=== PATIENT | female | born 1980 | race Caucasian/White ===

== ENCOUNTER 2020-05-29 07:57 | Outpatient (REF) | payer OTHER, SELFPAY ==
[2020-05-29 11:13] LABS: MANUAL DIFF FLAG NO
[2020-05-29 11:47] LABS: Basophils Percent Auto 0.7 % (0-2); Eosinophils Absolute Auto 0.2 X10*3/uL (0.0-0.4); Eosinophils Percent Auto 3.3 % (0-4); Hematocrit 40.7 % (37-47); Hemoglobin 13.4 g/dl (12.0-16.0); Imm Gran Abs Auto 0.01 X10*3/uL (0.00-0.03); Imm Gran Pct Auto 0.2 % (0.0-0.4); Lymphocytes Absolute Auto 2.2 X10*3/uL (1.2-4.9); Lymphocytes Percent Auto 36.9 % (20-40); Mean Corpuscular HGB Conc 32.9 g/dl (31.0-35.0); Mean Corpuscular Hemoglobin 28.7 pg (27.0-33.0); Mean Corpuscular Volume 87.2 fL (80-98); Mean Platelet Volume 11.2 fL (9.4-12.3); Monocytes Absolute Auto 0.6 X10*3/uL (0.1-1.2); Neutrophils Percent Auto 48.9 % (45-73); Platelet Count 222 X10*3/uL (160-400); Red Blood Count 4.67 X10*6/uL (4.20-5.50)
[2020-05-29 12:30] LABS: Alanine Aminotransferase 9 U/L (0-31); Albumin Level 4.1 g/dL (3.5-5.0); Alkaline Phosphatase 85 U/L (39-117); Anion Gap 12 (12-20); Aspartate Amino Transferase 13 U/L (5-31); Bilirubin Direct < 0.2 mg/dL (0.0-0.5); Bilirubin Total 0.3 mg/dL (0.0-1.0); Blood Urea Nitrogen 16 mg/dL (9-16); Calcium 8.4 mg/dL (8.4-10.2); Carbon Dioxide 26 mmol/L (22-29); Chloride 109 mmol/L (96-108); Cholesterol 186 mg/dL; Estimated Glomerular Filt Rate > 60; Glucose Fasting 101 mg/dL (60-99); HDL Cholesterol 50 mg/dL; LDL Cholesterol Calculated 119 mg/dl; Potassium 4.5 mmol/L (3.3-5.1); Sodium 142 mmol/L (135-145); Total Protein 6.7 g/dL (6.5-8.0); Triglycerides 89 mg/dL
== END 2020-05-29 07:58 | disposition home or self-care (01) ==
LOC: HO.HMGCLDS 07:57
PROVIDERS: PCP Internal Medicine; Visit Provider Internal Medicine
DX: Z00.00 Encounter for general adult medical examination without abnormal findings (principal)
CPT/HCPCS: 36415; 80048; 80061; 80076; 85025

== ENCOUNTER 2020-08-07 08:30 | Outpatient (REF) | payer OTHER, SELFPAY ==
[2020-08-07 13:20] LABS: CT PCR NOT DETECTED (Not Detect.); NG PCR NOT DETECTED (Not Detect.)
[2020-08-10 10:16] LABS: HPV mRNA E6/E7 rflx Not Detected (Not Detected)
== END 2020-08-07 08:31 | disposition home or self-care (01) ==
LOC: HO.LAB 08:30
PROVIDERS: Visit Provider Advanced Practice Midwife
DX: Z01.419 Encounter for gynecological examination (general) (routine) without abnormal findings (principal); Z11.51 Encounter for screening for human papillomavirus (HPV)
CPT/HCPCS: 87491; 87591; 87624; 88142

== ENCOUNTER 2021-05-19 08:06 | Outpatient (REF) | payer OTHER, SELFPAY ==
[2021-05-19 11:08] LABS: MANUAL DIFF FLAG NO
[2021-05-19 11:12] LABS: Basophils Percent Auto 0.7 % (0-2); Eosinophils Absolute Auto 0.1 X10*3/uL (0.0-0.4); Eosinophils Percent Auto 2.1 % (0-4); Hematocrit 40.4 % (37.0-47.0); Hemoglobin 13.4 g/dl (12.0-16.0); Imm Gran Abs Auto 0.01 X10*3/uL (0.00-0.03); Imm Gran Pct Auto 0.2 % (0.0-0.4); Lymphocytes Absolute Auto 1.9 X10*3/uL (1.2-4.9); Mean Corpuscular HGB Conc 33.2 g/dl (31.0-35.0); Mean Corpuscular Hemoglobin 28.8 pg (27.0-33.0); Mean Corpuscular Volume 86.9 fL (80.0-98.0); Mean Platelet Volume 12.4 fL (9.4-12.3); Monocytes Absolute Auto 0.4 X10*3/uL (0.1-1.2); Monocytes Percent Auto 7.6 % (2-11); Neutrophils Absolute Auto 3.2 x10*3/uL (2.0-8.3); Neutrophils Percent Auto 56.4 % (45-73); Platelet Count 157 X10*3/uL (160-400); Red Blood Count 4.65 X10*6/uL (4.20-5.50); Red Cell Distribution Width 11.8 % (11.0-16.0); White Blood Count 5.6 X10*3/uL (4.8-10.8)
[2021-05-19 11:29] LABS: Alanine Aminotransferase 8 U/L (0-31); Albumin Level 3.9 g/dL (3.5-5.0); Alkaline Phosphatase 68 U/L (39-117); Anion Gap 10 (12-20); Aspartate Amino Transferase 14 U/L (5-31); Bilirubin Total 0.6 mg/dL (0.0-1.0); Blood Urea Nitrogen 17 mg/dL (9-16); Carbon Dioxide 25 mmol/L (22-29); Chloride 108 mmol/L (96-108); Cholesterol 171 mg/dL; Estimated Glomerular Filt Rate > 60; Glucose Fasting 111 mg/dL (60-99); HDL Cholesterol 48 mg/dL; LDL Cholesterol Calculated 109 mg/dl; Potassium 4.3 mmol/L (3.3-5.1); Sodium 139 mmol/L (135-145); Total Protein 6.4 g/dL (6.5-8.0); Triglycerides 71 mg/dL
[2021-05-21 04:43] LABS: Vitamin B12 405 pg/mL (200-900)
[2021-05-23 12:06] LABS: Vitamin D 25-OH, D2 <4 ng/mL; Vitamin D 25-OH, D3 12 ng/mL; Vitamin D 25-OH, Total 12 ng/mL (30-100)
== END 2021-05-19 08:07 | disposition home or self-care (01) ==
LOC: HO.HMGCLDS 08:06
PROVIDERS: PCP Internal Medicine; Visit Provider Internal Medicine
DX: Z00.01 Encounter for general adult medical examination with abnormal findings (principal); R73.03 Prediabetes; R14.3 Flatulence; R14.2 Eructation; R14.0 Abdominal distension (gaseous)
CPT/HCPCS: 36415; 80053; 80061; 82306; 82607; 84443; 85025

== ENCOUNTER 2021-09-19 12:47 | Outpatient (REF) | payer OTHER, SELFPAY ==
[2021-09-19 15:22] LABS: CT PCR NOT DETECTED (Not Detect.); NG PCR NOT DETECTED (Not Detect.)
[2021-09-20 13:49] LABS: BV Int Neg Control Negative (Negative); BV Int Pos Control Positive (Positive)
== END 2021-09-19 12:48 | disposition home or self-care (01) ==
LOC: HO.LAB 12:47
PROVIDERS: Visit Provider Advanced Practice Midwife
DX: Z01.419 Encounter for gynecological examination (general) (routine) without abnormal findings (principal)
CPT/HCPCS: 87480; 87491; 87510; 87591; 87660

== ENCOUNTER 2021-11-07 11:06 | Outpatient (REF) | payer OTHER, SELFPAY ==
--- NOTE | ~2021-11-07 | US_ITS ---
EXAMINATION: US PELVIS CLINICAL INFORMATION: Unusual cramping, verify position of IUD. COMPARISON: None TECHNIQUE: Ultrasound of the pelvis is performed using both transabdominal and transvaginal transducers along with Doppler. Transvaginal imaging is performed due to inadequate visualization transabdominally. FINDINGS: Uterus: The uterus is anteverted, anteflexed and measures 10.2 cm in length, 5.2 cm in AP and 6.3 cm in transverse dimension. There is an IUD within the endometrial canal with endometrial thickness not seen. There are small nabothian cysts in the cervix. The uterus is smooth in contour and has normal myometrial echogenicity. No visible fibroid. Adnexa: Both ovaries are visualized. There is normal color-flow to the adnexa. There is no ovarian torsion. There is no pelvic ascites or fluid collection. Right ovary measures 3.5 x 1.6 x 1.7 cm and volume 5.0 mL. It appears unremarkable. Left ovary measures 2.8 x 1.6 x 2.4 cm and volume 5.4 mL. There is a small corpus luteal cyst measuring 1.8 x 1.4 x 2.4 cm. There is no free fluid in the cul-de-sac. US/US pelvic and transvaginal IMPRESSION: IUD well located within the endometrial canal. Small nabothian cysts in the cervix. Small corpus luteal cyst left ovary.
[2021-11-07 13:51] LABS: Syphilis Screen Nonreactive (Nonreactive)
[2021-11-08 05:30] LABS: HBsAGNum1 0.33 S/CO (0.00-0.99); HIV AB/AG Nonreactive (Nonreactive); HIV Num 1 0.08 S/CO (0.00-0.99); Hepatitis B Surface Antigen Negative (Negative); ~HepC Num1 0.08 S/CO (0.00-0.79); ~Hepatitis C Antibody Nonreactive (Nonreactive)
== END 2021-11-07 11:07 | disposition home or self-care (01) ==
LOC: HO.US 11:06
PROVIDERS: Visit Provider Advanced Practice Midwife
DX: Z30.431 Encounter for routine checking of intrauterine contraceptive device (principal); N94.89 Other specified conditions associated with female genital organs and menstrual cycle
CPT/HCPCS: 36415; 76830; 76856; 86780; 86803; 87340; 87389

== ENCOUNTER 2022-06-05 12:19 | Outpatient (REF) | payer OTHER, SELFPAY ==
[2022-06-05 13:55] LABS: MANUAL DIFF FLAG NO
[2022-06-05 14:04] LABS: Basophils Percent Auto 0.5 % (0-2); Eosinophils Absolute Auto 0.3 X10*3/uL (0.0-0.4); Eosinophils Percent Auto 3.5 % (0-4); Hematocrit 42.4 % (37.0-47.0); Hemoglobin 14.2 g/dl (12.0-16.0); Imm Gran Abs Auto 0.02 X10*3/uL (0.00-0.03); Imm Gran Pct Auto 0.2 % (0.0-0.4); Lymphocytes Absolute Auto 2.4 X10*3/uL (1.2-4.9); Lymphocytes Percent Auto 29.7 % (20-40); Mean Corpuscular HGB Conc 33.5 g/dl (31.0-35.0); Mean Corpuscular Hemoglobin 28.7 pg (27.0-33.0); Mean Corpuscular Volume 85.7 fL (80.0-98.0); Mean Platelet Volume 11.5 fL (9.4-12.3); Monocytes Absolute Auto 0.5 X10*3/uL (0.1-1.2); Monocytes Percent Auto 6.7 % (2-11); Neutrophils Absolute Auto 4.8 x10*3/uL (2.0-8.3); Neutrophils Percent Auto 59.4 % (45-73); Platelet Count 215 X10*3/uL (160-400); Red Blood Count 4.95 X10*6/uL (4.20-5.50)
[2022-06-05 14:22] LABS: Alanine Aminotransferase 10 U/L (0-31); Albumin Level 4.2 g/dL (3.5-5.0); Alkaline Phosphatase 77 U/L (39-117); Anion Gap 15 (12-20); Aspartate Amino Transferase 14 U/L (5-31); Bilirubin Total 0.4 mg/dL (0.0-1.0); Blood Urea Nitrogen 14 mg/dL (9-16); Calcium 9.2 mg/dL (8.4-10.2); Carbon Dioxide 24 mmol/L (22-29); Chloride 106 mmol/L (96-108); Estimated Glomerular Filt Rate > 60; Glucose Random 101 mg/dL (60-115); Potassium 4.3 mmol/L (3.3-5.1); Sodium 141 mmol/L (135-145); Total Protein 6.7 g/dL (6.5-8.0)
[2022-06-05 14:23] LABS: Estimated Average Glucose 114 mg/dL; Hemoglobin A1c % 5.6 %
[2022-06-10 16:28] LABS: Vitamin D 25-OH, D2 <4 ng/mL; Vitamin D 25-OH, D3 23 ng/mL; Vitamin D 25-OH, Total 23 ng/mL (30-100)
== END 2022-06-05 12:20 | disposition home or self-care (01) ==
LOC: HO.HMGCLDS 12:19
PROVIDERS: PCP Internal Medicine; Visit Provider Internal Medicine
DX: Z00.01 Encounter for general adult medical examination with abnormal findings (principal); E55.9 Vitamin D deficiency, unspecified; R73.03 Prediabetes
CPT/HCPCS: 36415; 80053; 82306; 83036; 85025

== ENCOUNTER 2023-01-01 13:02 | Outpatient (REF) | payer OTHER, SELFPAY ==
[2023-01-02 09:54] LABS: BV Int Neg Control Negative (Negative); BV Int Pos Control Positive (Positive)
[2023-01-03 19:59] LABS: HPV mRNA E6/E7 rflx Not Detected (Not Detected)
== END 2023-01-01 13:03 | disposition home or self-care (01) ==
LOC: HO.LNP 13:02
PROVIDERS: PCP Internal Medicine; Visit Provider Advanced Practice Midwife
DX: Z01.419 Encounter for gynecological examination (general) (routine) without abnormal findings (principal); Z11.51 Encounter for screening for human papillomavirus (HPV); N92.0 Excessive and frequent menstruation with regular cycle; Z97.5 Presence of (intrauterine) contraceptive device
CPT/HCPCS: 0353U; 87480; 87510; 87624; 87660; 88142; 99396

== ENCOUNTER 2023-01-01 13:02 | Outpatient (AMB) | payer OTHER, SELFPAY ==
--- NOTE | 2023-01-01 13:05 | MHC.OFFVIS ---
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 Balloon Maker Required: No Information Interpreted: non-clinical & clinical Mutuel Cashier: Mutuel Cashier Present (Mikey) Allergies No Known Allergies Allergy (Verified 01/01/23 13:08) Medication List - Last Reconciled 01/01/23 by Tosha Garcia CNM acyclovir 5% 1 appl topical 6XD 7 days copper (ParaGard T 380A) intrauterine penciclovir 1% 1 appl topical Q2H 4 days triamcinolone acetonide 0.1% 1 appl topical DAILY 30 days Is last menstrual period known: Yes Last menstrual period: 12/12/22 Post menopausal: No HPI 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 She has a history of abnormal Pap smears a very long time ago and had some sort of biopsy taken but they have been normal since. She says that I told her that this year she would have a Pap because of the history of abnormals it was found in a history of a note when doing research last year neither she nor I remember exactly when the last Pap was MA did not find 1 in our system patient states it was in the [place]. Patient has the ParaGard IUD the location of which was double checked by ultrasound last year. She thinks it was inserted 8 years ago after the of her daughter. She is happy with it her cycles to come every 23-24 days but they are like clockwork they last usually about 3-4 days though once 1 was only 2 days. She had implants placed in her breasts last year she has regreting it slightly in that she thinks she should have been happy with how she was but she is not having any problems with them. She has not had a mammogram yet. She is healthy otherwise and takes care of herself. PFSH Surgical History H/O breast augmentation Family History Sister Kidney disease Hypertension Breast cancer Social History Housing: House Alcohol intake: current Alcohol intake frequency: a few times a month Patient Tobacco Use Status: Never used Tobacco (7 years ago ) Years Smoked: 10 years e-Cigarette/Vaping Use: Never Used Substance Use Type: Marijuana Current occupational status: employed Cognitive needs: No Hearing needs: No Vision needs: No Female Reproductive History Menstrual Age of Menarche: 13 Duration of menses: 3-5 days Date of last menstrual period: 12/12/22 control method: copper IUCD Total pregnancies: 4 Full term: 4 Number of Living Children: 4 Date of last pap smear: 08/08/20 (negative) History of abnormal pap smear: Yes Physical Exam Vital Signs: Last Vital Signs BP 116/66 01/01/23 13:06 BMI result Body Mass Index 24.6 Const General: healthy appearing, comfortable, no acute distress, well developed and alert Nutritional Appearance: average body habitus Orientation/consciousness: patient oriented x3 Limitations: no limitations HEENT Head: Yes normocephalic Neck Neck: Yes normal visual inspection Chest Other: Has breast implants Chest palpation & inspection: normal inspection of the chest Breast/axilla inspection: normal inspection of the breasts and normal inspection of the axillae Breast/axilla palpation: normal palpation of the breasts and normal palpation of the axillae Resp Effort & Inspection: normal respiratory effort GI Inspection: Yes normal to inspection, No Abdominal wall edema and No distended Palpation (GI): Soft to palpation and nontender General: Yes bladder normal to palpation External Female Exam: normal external appearance and normal appearance of the urethra Speculum Exam - Vagina: normal appearance of the vagina, normal palpation and normal vaginal discharge Speculum Exam - Cervix: normal appearance of the cervix, normal palpation and nontender Bimanual exam- vagina & uterus: normal bimanual exam, normal palpation, uterine size normal, bladder normal to palpation, consistency normal, normal palpation, uterine mobility normal, uterine shape normal, No Cervical tenderness present, non-tender and no cervical motion tenderness Bimanual Exam- Adnexa, other: normal adnexae, no masses, normal and No adnexal tenderness Neuro General: patient oriented x3 Assessment & Plan Assessment & Plan (1) IUD (intrauterine device) in place: Code(s): Z97.5 - Presence of (intrauterine) contraceptive device (2) Surveillance for control, intrauterine device: Comment: Has ParaGard in place inserted 8 years ago after the of her daughter. Code(s): Z30.431 - Encounter for routine checking of intrauterine contraceptive device (3) Short menstrual cycle: Comment: Q 23-24 days by her description. They last 3-4 days max. Code(s): N92.0 - Excessive and frequent menstruation with regular cycle (4) Family history of breast cancer in first degree relative: Code(s): Z80.3 - Family history of malignant neoplasm of breast (5) Well woman exam with routine gynecological exam: Code(s): Z01.419 - Encounter for gynecological examination (general) (routine) without abnormal findings Plan -----Discussed in this visit the following: healthy balanced diet, regular and consistent exercise, getting recommended health screens, doing the best she can for her particular health concerns, kegel exercises, pap smear screening and followup recommendations, mammography screening and SBE, normal changes in cycles in her life stage--- . Reviewed her history. Mammogram ordered. Recommend trying to schedule it for after her menses for comfort. Pap smear done we were not able to find the exact history of her Pap but we will follow it from here on. 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 Discussed that she can replace the ParaGard IUD in 2 years that it is FDA approved for 10 years. It would be best for her to plan for it come and then says signed consent to order it and then try to schedule it for with herperiod Sometime at her convenience.. Coding Level of Care Code Est Pt Prev Care 40-64y([id number]) Diagnoses IUD (intrauterine device) in place Z97.5 Surveillance for control, intrauterine device Z30.431 Short menstrual cycle N92.0 Family history of breast cancer in first degree relative Z80.3 Well woman exam with routine gynecological exam Z01.419
[2023-01-01 13:06] VITALS: BP 116/66; BMI 24.6
== END 2023-01-01 13:50 | disposition home or self-care (01) ==
PROVIDERS: PCP Internal Medicine; Visit Provider Advanced Practice Midwife
DX: Z01.419 Encounter for gynecological examination (general) (routine) without abnormal findings (principal); N92.0 Excessive and frequent menstruation with regular cycle; Z80.3 Family history of malignant neoplasm of breast
CPT/HCPCS: 99396

== ENCOUNTER 2023-06-11 10:30 | Outpatient (AMB) | payer OTHER, SELFPAY ==
--- NOTE | 2023-06-11 10:45 | MHC.PC.OV ---
Vital Signs 06/11/23 10:46 Height 5 ft Weight 125 lb 2 oz BMI 24.4 BP 126/74 Blood Pressure Location Rt brachial Position Sitting Pulse 99 Pulse Source Pulse Oximeter Pulse Oximetry (%) 96 Oxygen Delivery Method Room Air Intake Visit Reasons: PE Allergies No Known Allergies Allergy (Verified 06/11/23 10:48) Medication List - Last Reconciled 06/11/23 by Hector Ramirez MD acyclovir 5% 1 appl topical 6XD 7 days copper (ParaGard T 380A) intrauterine penciclovir 1% 1 appl topical Q2H 4 days triamcinolone acetonide 0.1% 1 appl topical DAILY 30 days Tobacco use date assessed: 06/11/23 Dental Screening Dental Screen Date: 06/11/23 Did you have a dental visit in the last 12 months?: Yes Did you have a dental problem in the last 6 months where you did not have access to dental care?: No Was dental information given to patient?: Patient has dentist HPI PE HPI Details Patient is a 42-year-old female came today for physical examination Patient have [facility] Mammogram is due Pre diabetes: Patient will be having labs done fasting We are checking her sugars once a year when she comes in for physical examination. Continue vitamin-D supplement Follow-up 1 year physical exam [facility] Surgical History H/O breast augmentation Family History Sister Kidney disease Hypertension Breast cancer Social History Housing: House Alcohol intake: current Alcohol intake frequency: a few times a month Patient Tobacco Use Status: Never used Tobacco (7 years ago ) Years Smoked: 10 years e-Cigarette/Vaping Use: Never Used Substance Use Type: Marijuana Current occupational status: employed Cognitive needs: No Hearing needs: No Vision needs: No Female Reproductive History Menstrual Age of Menarche: 13 Questionnaire PHQ-9 Over the last 2 weeks, how often have you been bothered by any of the following problems? 1. Little interest or pleasure in doing things: not at all 2. Feeling down, depressed, or hopeless: not at all 3. Trouble falling or staying asleep, or sleeping too much: not at all 4. Feeling tired or having little energy: not at all 5. Poor appetite or overeating: not at all 6. Feeling bad about yourself - or that you are a failure or have let yourself or your family down: not at all 7. Trouble concentrating on things, such as reading the newspaper or watching television: not at all 8. Moving or speaking so slowly that other people could have noticed. Or the opposite - being so fidgety or restless that you have been moving around a lot more than usual: not at all 9. Thoughts that you would be better off or of hurting yourself in some way: not at all Total score: 0 Depression Screening Interpretation: Negative Depression Screening Done: Yes 16579 - PHQ-9 Billing: Yes Source: Developed by Drs. Neal Chairez, Jody Awad, Tristin Zhang and colleagues, with an educational violeta from [facility]. Thrive Questionnaire Date Thrive assessed: 06/11/23 I am a: Patient What is your living situation today?: I have a steady place to live Within the past 12 months, did the food you bought not last and you didn't have the money to get more?: Never true Within the past 12 months, did you worry whether your food would run out before you got money to buy more?: Never true Do you have trouble paying for medicines?: No Do you have trouble getting transportation to medical appointments?: No Do you have trouble paying your heating and electricity bill?: No Do you have trouble taking care of your child, family member or friend?: No Do you have trouble with day-to-day activities such as bathing, preparing meals, shopping, managing finances, etc.?: No Are you currently unemployed and looking for a job?: No Are you interested in more education?: No Please select the resources that you would like help with: None Currently or been in a relationship where the following occur: no concerns reported THRIVE Score: 0 AUDIT C Alcohol Use Questionnaire (AUDIT-C) 1. How often do you have a drink containing alcohol?: Never 3. How often do you have six or more drinks on one occasion?: Never Total Score: 0 Score Reviewed/Action Taken: Yes OSWALD-7 AMB Questionnaire OSWALD-7 Date OSWALD - 7 assessed: 06/11/23 Feeling nervous, anxious, or on edge: 0 = Not at all Not being able to stop or control worryin = Not at all Worrying too much about different things: 0 = Not at all Trouble relaxin = Not at all Being so restless that it is hard to sit still: 0 = Not at all Becoming easily annoyed or irritable: 0 = Not at all Feeling afraid as if something awful might happen: 0 = Not at all Total OSWALD-7 score (0-4 normal; 5-9 mild; 10-14 moderate; 15-21 severe): 0 Source: Developed by Drs. Neal Chairez, Jody Awad, Tristin Zhang and colleagues, with an educational violeta from [facility]. OSWALD-7 Assessment Billing OSWALD-7 Assessment Tool: OSWALD-7 Assessment 44668 Review of Systems Const Denies chills, Denies fever(s) and Denies headache(s) Eyes Denies blurry vision ENT Denies headache(s), Denies nasal discharge, Denies nasal obstruction, Denies odynophagia and Denies sinus pain Card Denies chest pain at rest and Denies chest pain with activity Resp Denies cough and Denies hemoptysis GI Denies diarrhea, Denies odynophagia, Denies vomiting and Denies hematemesis Reports as per HPI Musc Denies abnormal gait Skin/Breast Reports as per HPI Neuro Denies Neuro-related abnormal movements, Denies Abnormal speech present, Denies abnormal gait, Denies headache(s) and Denies Sensory deficit (Neuro) Psych Denies mood swings and Denies paranoia Endo Reports as per HPI Fito/Lymph Reports as per HPI Aller/Immun Reports as per HPI Physical exam (Primary Care) Vital Signs: Last Vital Signs Pulse 99 06/11/23 10:46 BP 126/74 06/11/23 10:46 Pulse Ox 96 06/11/23 10:46 Oxygen Delivery Method Room Air 06/11/23 10:46 BMI result Body Mass Index 24.4 Tobacco/Smoking Status: Tobacco use Status Tobacco use date assessed 06/11/23 06/11/23 10:50 Patient Tobacco Use Status Never used Tobacco (7 years 06/11/23 10:47 ago ) Tobacco use type 06/29/22 11:43 e-Cigarette/Vaping Use Never Used 06/11/23 10:47 PHQ-9: PHQ-9 Score PHQ-9: Total score 0 06/11/23 10:50 Depression Screening Interpretation: Negative Thrive Assessment: Date of Thrive Assessment Date Thrive assessed 06/11/23 06/11/23 10:50 Currently or been in a relationship where the following occur: no concerns reported Const General: cooperative, comfortable and no acute distress Orientation/consciousness: patient oriented x3 HENMT Head: Yes normocephalic and Yes atraumatic Eyes General: appearance normal, both eyes and all related structures Pupils: Equal, round and reactive pupils present EOM: EOMs intact bilaterally Neck Neck: Yes supple and No lymphadenopathy Thyroid: Thyroid normal Lymphatic: no lymphadenopathy noted Resp Effort & Inspection: normal respiratory effort and able to speak in complete sentences Auscultation: clear to auscultation bilaterally Cardio Heart sounds: S1 normal heart sound present and S2 normal heart sound present GI Palpation (GI): Soft to palpation and nontender Auscultation: normal bowel sounds General: Yes no CVA tenderness Back/Spine/Pelvis Back: no CVA tenderness Skin General skin exam: elasticity normal and turgor normal Neuro General: patient oriented x3 and gait normal Cranial nerves: Yes Equal, round and reactive pupils present Speech: No Abnormal speech present Sensory Exam: No Sensory deficit (Neuro) Coordination: tandem gait normal and Romberg test negative Extrem General: Yes normal exam except as noted and No edema Assessment and Plan Assessment & Plan (1) Encounter for general adult medical examination with abnormal findings: Code(s): Z00.01 - Encounter for general adult medical examination with abnormal findings (2) Pre-diabetes: Code(s): R73.03 - Prediabetes (3) Vitamin D deficiency: Code(s): E55.9 - Vitamin D deficiency, unspecified Plan Patient is a 42-year-old female came today for physical examination Patient have [facility] Mammogram through them Pre diabetes: Patient will be having labs done fasting We are checking her sugars once a year when she comes in for physical examination. Continue vitamin-D supplement Follow-up 1 year physical exam Orders: Orders Vitamin D 25-OH (D2 and D3) Today E55.9 - Vitamin D deficiency, unspecified, R73.03 - Prediabetes, Z00.01 - Encounter for general adult medical examination with abnormal findings MM tomosynthesis screening BI Today Z12.31 - Encounter for screening mammogram for malignant neoplasm of breast Complete Blood Count Auto Diff Today E55.9 - Vitamin D deficiency, unspecified, R73.03 - Prediabetes, Z00.01 - Encounter for general adult medical examination with abnormal findings Comprehensive Roff. Panel Fast Today E55.9 - Vitamin D deficiency, unspecified, R73.03 - Prediabetes, Z00.01 - Encounter for general adult medical examination with abnormal findings Lipid Panel Today E55.9 - Vitamin D deficiency, unspecified, R73.03 - Prediabetes, Z00.01 - Encounter for general adult medical examination with abnormal findings Coding Level of Care Code Est Pt Prev Care 40-64y(26831) Diagnoses Encounter for general adult medical examination with abnormal findings Z00.01 Pre-diabetes R73.03 Vitamin D deficiency E55.9 Additional Codes OSWALD-7 Assessment Billing - OSWALD-7 Assessment Tool: OWSALD-7 Assessment 45205 ([id number])
[2023-06-11 10:46] VITALS: BP 126/74; PULSE 99; O2SAT 96; BMI 24.4
== END 2023-06-11 11:01 | disposition home or self-care (01) ==
PROVIDERS: Visit Provider Internal Medicine
DX: Z00.01 Encounter for general adult medical examination with abnormal findings (principal); R73.03 Prediabetes; E55.9 Vitamin D deficiency, unspecified
CPT/HCPCS: 99396

== ENCOUNTER 2023-06-14 07:58 | Outpatient (REF) | payer OTHER, SELFPAY ==
[2023-06-14 11:10] LABS: MANUAL DIFF FLAG NO
[2023-06-14 11:21] LABS: Basophils Percent Auto 0.7 % (0-2); Eosinophils Absolute Auto 0.3 X10*3/uL (0.0-0.4); Eosinophils Percent Auto 5.2 % (0-4); Hematocrit 41.5 % (37.0-47.0); Hemoglobin 14.1 g/dl (12.0-16.0); Imm Gran Abs Auto 0.01 X10*3/uL (0.00-0.03); Imm Gran Pct Auto 0.2 % (0.0-0.4); Lymphocytes Percent Auto 34.4 % (20-40); Mean Corpuscular Hemoglobin 29.3 pg (27.0-33.0); Mean Corpuscular Volume 86.1 fL (80.0-98.0); Mean Platelet Volume 11.1 fL (9.4-12.3); Monocytes Absolute Auto 0.4 X10*3/uL (0.1-1.2); Monocytes Percent Auto 7.4 % (2-11); Neutrophils Absolute Auto 3.1 x10*3/uL (2.0-8.3); Neutrophils Percent Auto 52.1 % (45-73); Platelet Count 214 X10*3/uL (160-400); Red Blood Count 4.82 X10*6/uL (4.20-5.50); Red Cell Distribution Width 12.6 % (11.0-16.0); White Blood Count 5.9 X10*3/uL (4.8-10.8)
[2023-06-14 11:48] LABS: Alanine Aminotransferase 9 U/L (0-31); Albumin Level 4.1 g/dL (3.5-5.0); Alkaline Phosphatase 63 U/L (39-117); Anion Gap 13 (12-20); Aspartate Amino Transferase 12 U/L (5-31); Bilirubin Total 0.4 mg/dL (0.0-1.0); Blood Urea Nitrogen 18 mg/dL (9-16); Calcium 9.4 mg/dL (8.4-10.2); Carbon Dioxide 25 mmol/L (22-29); Chloride 107 mmol/L (96-108); Cholesterol 205 mg/dL (<200); Estimated Glomerular Filt Rate > 60; Glucose Fasting 96 mg/dL (60-99); HDL Cholesterol 56 mg/dL (>40); LDL Cholesterol Calculated 133 mg/dL (<100); Sodium 141 mmol/L (135-145); Total Protein 6.9 g/dL (6.5-8.0); Triglycerides 81 mg/dL (<150)
[2023-06-18 14:49] LABS: Vitamin D 25-OH, D2 <4 ng/mL; Vitamin D 25-OH, D3 24 ng/mL; Vitamin D 25-OH, Total 24 ng/mL (30-100)
== END 2023-06-14 07:59 | disposition home or self-care (01) ==
LOC: HO.HMGCLDS 07:58
PROVIDERS: PCP Internal Medicine; Visit Provider Internal Medicine
DX: Z00.01 Encounter for general adult medical examination with abnormal findings (principal); R73.03 Prediabetes; E55.9 Vitamin D deficiency, unspecified
CPT/HCPCS: 36415; 80053; 80061; 82306; 85025

== ENCOUNTER → 2023-07-05 07:45 | Outpatient (BNV) | payer OTHER, SELFPAY | PROVIDERS: PCP Internal Medicine; Visit Provider Radiology Diagnostic Radiology | DX: Z12.31 Encounter for screening mammogram for malignant neoplasm of breast (principal) | CPT/HCPCS: 77063; 77067 ==

== ENCOUNTER 2023-07-05 07:46 | Outpatient (REF) | payer OTHER, SELFPAY ==
--- NOTE | ~2023-07-05 | MM_ITS ---
EXAMINATION: MM SCREENING DIGITAL BREAST TOMOSYNTHESIS, BILATERAL WITH BREAST IMPLANTS CLINICAL INFORMATION: Screening. Asymptomatic. COMPARISON: Mammography: This is a baseline mammogram. TECHNIQUE: Digital mammography is performed in craniocaudal and mediolateral oblique views along with computer-aided detection (CAD). Digital breast tomosynthesis is performed in implant-displaced craniocaudal and implant-displaced mediolateral oblique views along with computer-aided detection (CAD). Synthesized 2D images are generated from the tomosynthesis. FINDINGS: There are scattered areas of fibroglandular density (ACR BI-RADS breast composition Category b). There are bilateral, mammographically intact, retropectoral silicone breast implants. There are no significant masses, abnormal calcifications, or other abnormalities. MM/MM tomosynthesis screen imp BI IMPRESSION: There are no significant changes from prior study. ASSESSMENT: BI-RADS BI-RADS 1 - Negative RECOMMENDATION: Routine annual mammography screening. 1 year F/U This patient's information was entered into a reminder system with a target due date for their next mammogram.
== END 2023-07-05 07:47 | disposition home or self-care (01) ==
LOC: HO.MAMMO 07:46
PROVIDERS: PCP Internal Medicine; Visit Provider Internal Medicine
DX: Z12.31 Encounter for screening mammogram for malignant neoplasm of breast (principal)
CPT/HCPCS: 77063; 77067

== ENCOUNTER 2024-01-23 11:20 | Outpatient (AMB) | payer OTHER, SELFPAY ==
--- NOTE | 2024-01-23 11:21 | A.OFFVIS_ITS ---
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 She is not having any problems at all she still gets her. With slightly short cycles but they are fine for her she is not having any problems with it she has the ParaGard IUD in his had it in for about 9 years now did discuss that it would be due for replacement next year and how she needs to sign insurance paperwork ahead of time and that we would schedule it with her menses. She herself is healthy. 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 She has 2 grown children who were in the [employer] and 2 younger children last 1 with her current . Her was diagnosed with testicular cancer last year c ared for at [facility] had surgery and chemotherapy and had a CT scan which was clear. Also during last year her sister was dealing dying. She was in need of a kidney transplant and she had pancreatic cancers well. She has a history of oral herpes the she appreciated learning more about today she has a cream that she can put on it but she did not understand the full natural history of it. She has had it most of her life Her niece it is an HSV outbreak on her nose periodically and has the same cream for treatment. She had an abnormal Pap smear many many years ago probably in the [place] and she members they took a little biopsy but said it is fine after that. [facility] Surgical History (Updated 01/23/24 @ 12:02 by Tosha Garcia CNM) H/O breast augmentation Family History Sister Kidney disease Hypertension Breast cancer Social History Housing: House Alcohol intake: current Alcohol intake frequency: a few times a month Patient Tobacco Use Status: Never used Tobacco Years Smoked: 10 years e-Cigarette/Vaping Use: Never Used Substance Use Type: Marijuana Current occupational status: employed Cognitive needs: No Hearing needs: No Vision needs: No Female Reproductive History Menstrual Age of Menarche: 13 Duration of menses: 3-5 days Date of last menstrual period: 01/03/24 control method: copper IUCD Total pregnancies: 4 Full term: 4 Date of last pap smear: 01/02/23 (negative,previous pap,2020 WNL) History of abnormal pap smear: Yes (unknow date) Date of Mammogram: 07/05/23 (negative) Physical Exam Vital Signs: Last Vital Signs BP 110/62 01/23/24 11:29 BMI result Body Mass Index 24.6 Const General: healthy appearing, comfortable, no acute distress, well developed and alert Nutritional Appearance: average body habitus Orientation/consciousness: patient oriented x3 Limitations: no limitations HEENT Head: Yes normocephalic Neck Neck: Yes normal visual inspection Chest Other: Patient has breast implants Chest palpation & inspection: normal inspection of the chest Breast/axilla inspection: normal inspection of the breasts and normal inspection of the axillae Breast/axilla palpation: normal palpation of the breasts and normal palpation of the axillae Resp Effort & Inspection: normal respiratory effort GI Inspection: Yes normal to inspection, No Abdominal wall edema and No distended Palpation (GI): Soft to palpation and nontender Other: Vagina is pink and moist there is a scant whitish yellowish discharge consistent with luteal phase. Cervix multiparous somewhat flattened against apex of vagina ParaGard string visible slightly discolored from 9 years of use and menses. Uterus is small anteverted mobile nontender adnexa nontender nonenlarged good tone with Kegel. General: Yes bladder normal to palpation External Female Exam: normal external appearance and normal appearance of the urethra Speculum Exam - Vagina: normal appearance of the vagina, normal palpation and normal vaginal discharge Speculum Exam - Cervix: normal appearance of the cervix, normal palpation and nontender Bimanual exam- vagina & uterus: normal bimanual exam, normal palpation, uterine size normal, bladder normal to palpation, consistency normal, normal palpation, uterine mobility normal, uterine shape normal, No Cervical tenderness present, non-tender and no cervical motion tenderness Bimanual Exam- Adnexa, other: normal adnexae, no masses, normal and No adnexal tenderness Neuro General: patient oriented x3 Assessment & Plan Assessment & Plan (1) Short menstrual cycle: Comment: Q 23-24 days by her description. They last 3-4 days max. Code(s): N92.0 - Excessive and frequent menstruation with regular cycle Category: Medical (2) Surveillance for control, intrauterine device: Comment: Has ParaGard in place inserted 8 years ago after the of her daughter. Code(s): Z30.431 - Encounter for routine checking of intrauterine contraceptive device Category: Medical (3) IUD (intrauterine device) in place: Code(s): Z97.5 - Presence of (intrauterine) contraceptive device Category: Medical (4) Screen for sexually transmitted diseases: Code(s): Z11.3 - Encounter for screening for infections with a predominantly sexual mode of transmission Category: Medical (5) Cervical cancer screening: Comment: hx of abnls years ago 08/07/20 pap= neg / neg hpv; 01/01/2023 Pap is negative with negative HPV. Code(s): Z12.4 - Encounter for screening for malignant neoplasm of cervix Category: Medical (6) Well woman exam with routine gynecological exam: Code(s): Z01.419 - Encounter for gynecological examination (general) (routine) without abnormal findings Category: Medical (7) Family history of breast cancer in first degree relative: Code(s): Z80.3 - Family history of malignant neoplasm of breast Category: Medical (8) H/O breast augmentation: Code(s): Z98.82 - Breast implant status Category: Surgical Plan -----Discussed in this visit the following: healthy balanced diet, regular and consistent exercise, getting recommended health screens, doing the best she can for her particular health concerns, kegel exercises, pap smear screening and followup recommendations, mammography screening and SBE, normal changes in cycles in her life stage--- . She is up-to-date on her mammograms have not just had 1 a couple of months ago. She sees her primary care provider. Education was done about the natural history of HSV including oral genital and transmission of the virus was likely when it is active and precautions to for the sharing it the many times people can have it and not know. Discussed that many people acquire it when they are young being kissed. Discussed her questions about her 's testicular cancer and I suggest that now that they are out of the acute phase of dealing with it that she consider asking her questions at her 's next checkup with his doctor. She does understand that it is rare. For next year when her ParaGard is due for replacement she will need to sign paperwork ahead of time and when it comes in it should be scheduled for replacement with beginning of her menses when her cervix be a little bit softer and more open as it is tightly closed today. Coding Level of Care Code Est Pt Prev Care 40-64y(41894) Diagnoses Short menstrual cycle N92.0 Surveillance for control, intrauterine device Z30.431 IUD (intrauterine device) in place Z97.5 Screen for sexually transmitted diseases Z11.3 Cervical cancer screening Z12.4 Well woman exam with routine gynecological exam Z01.419 Family history of breast cancer in first degree relative Z80.3 H/O breast augmentation Z98.82
[2024-01-23 11:29] VITALS: BP 110/62; BMI 24.6
== END 2024-01-23 13:00 | disposition home or self-care (01) ==
LOC: HO.HWSM 11:21
PROVIDERS: PCP Internal Medicine; Visit Provider Advanced Practice Midwife
DX: Z01.419 Encounter for gynecological examination (general) (routine) without abnormal findings (principal)
CPT/HCPCS: 99396

== ENCOUNTER 2024-01-23 11:20 | Outpatient (REF) | payer OTHER, SELFPAY ==
[2024-01-24 02:22] LABS: CT PCR NOT DETECTED (Not Detect.); NG PCR NOT DETECTED (Not Detect.)
[2024-01-24 16:07] LABS: Bacterial Vaginosis PCR NEGATIVE (Negative); Candida Group PCR DETECTED (Not Detect); Candida glab krusei PCR NOT DETECTED (Not Detect); Trichomonas vaginalis PCR NOT DETECTED (Not Detect)
== END 2024-01-23 11:21 | disposition home or self-care (01) ==
LOC: HO.LAB 11:20
PROVIDERS: PCP Internal Medicine; Visit Provider Advanced Practice Midwife
DX: Z01.419 Encounter for gynecological examination (general) (routine) without abnormal findings (principal); N89.8 Other specified noninflammatory disorders of vagina; Z20.2 Contact with and (suspected) exposure to infections with a predominantly sexual mode of transmission; N92.0 Excessive and frequent menstruation with regular cycle; Z97.5 Presence of (intrauterine) contraceptive device; Z80.3 Family history of malignant neoplasm of breast; Z98.82 Breast implant status; Z11.8 Encounter for screening for other infectious and parasitic diseases; Z11.3 Encounter for screening for infections with a predominantly sexual mode of transmission
CPT/HCPCS: 0352U; 87491; 87591; 99396

== ENCOUNTER 2024-01-23 13:25 | Outpatient (REF) | payer OTHER, SELFPAY | END 2024-01-23 13:26 | disposition home or self-care (01) | LOC: HO.LNP 13:25 | PROVIDERS: Visit Provider Advanced Practice Midwife | DX: Z13.89 Encounter for screening for other disorder (principal) ==

== ENCOUNTER 2024-09-29 08:51 | Outpatient (AMB) | payer OTHER, SELFPAY ==
[2024-09-29 08:59] VITALS: BP 100/60; PULSE 73; TEMP 36.9; O2SAT 96; BMI 26.2
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
== END 2024-09-29 09:44 | disposition home or self-care (01) ==
PROVIDERS: Visit Provider Physician Assistant
DX: R10.812 Left upper quadrant abdominal tenderness (principal); R07.89 Other chest pain; V89.2XXA Person injured in unspecified motor-vehicle accident, traffic, initial encounter; Z04.3 Encounter for examination and observation following other accident

== ENCOUNTER 2024-10-01 14:24 | Outpatient (AMB) | payer OTHER, SELFPAY ==
[2024-10-01 14:27] VITALS: BP 140/82; PULSE 80; O2SAT 98; BMI 26.0
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
== END 2024-10-01 14:48 | disposition home or self-care (01) ==
LOC: HO.HMCC 14:25
PROVIDERS: PCP Internal Medicine; Visit Provider Internal Medicine
DX: S06.0X0A Concussion without loss of consciousness, initial encounter (principal); S20.20XA Contusion of thorax, unspecified, initial encounter; R07.89 Other chest pain; Z04.2 Encounter for examination and observation following work accident; S80.02XA Contusion of left knee, initial encounter; V89.2XXA Person injured in unspecified motor-vehicle accident, traffic, initial encounter; M25.562 Pain in left knee; Z98.82 Breast implant status

== ENCOUNTER → 2024-10-01 14:24 | Outpatient (BNVA) | payer OTHER, SELFPAY | PROVIDERS: PCP Internal Medicine; Visit Provider Internal Medicine | DX: S06.0X0A Concussion without loss of consciousness, initial encounter (principal); S20.20XA Contusion of thorax, unspecified, initial encounter; S80.02XA Contusion of left knee, initial encounter; R07.89 Other chest pain; Z98.82 Breast implant status; V89.2XXA Person injured in unspecified motor-vehicle accident, traffic, initial encounter; Y93.9 Activity, unspecified; Y92.9 Unspecified place or not applicable; Y99.9 Unspecified external cause status; Z13.31 Encounter for screening for depression; Z13.39 Encounter for screening examination for other mental health and behavioral disorders | CPT/HCPCS: 96127 ==

== ENCOUNTER 2024-10-13 08:11 | Outpatient (REF) | payer OTHER, SELFPAY ==
--- OUTSIDE RECORDS SUMMARY | 2022-11-03 09:16 | XMS_ITS | Continuity of Care Document ---
Author Organization [facility] Address [address], [address] [place] [address] Phone Care Team Providers Care Real Estate Utilization Officer Name Role Phone Jennifer Gomez MD Unavailable Unavailable Allergies, Adverse Reactions, Alerts Substance Reaction Status Criticality No Known Allergies Active No Inform ation Procedures Procedure Date URINALYSIS NONAUTO W/O SCOPE BOILER OUT 2020 PREV VISIT, EST, AGE 18-39 URINALYSIS NONAUTO W/O SCOPE BOILER OUT 2019 PREV VISIT, EST, AGE 18-39 Ultrasound Pelvis Complete TRANSVAGINAL US, NON-OB OFFICE/OUTPATIENT VISIT, EST URINALYSIS NONAUTO W/O SCOPE BOILER OUT 2018 PREV VISIT, NEW, AGE 18-39 HPV HIGH-RISK TYPES CYTOPATH C/V AUTO FLUID REDO CHYLMD TRACH DNA AMP PROBE N.GONORRHOEAE DNA AMP PROB Advance Directives Directive Yes / No Effective Date File Name No Information Encounters Encounter Description Practice Location Reason(s) For Visit Diagnoses Date Provider [facility], [address], [address], [place], [id number], [place] tel:[phone] [place] [facility] No Information Jason Rodriguez. [address] [place] [address], [address], [place], [id number], [place]. tel:[phone] PREV VISIT, EST, AGE 18-39 [facility], [address], [address], [place], [id number], [place] tel:[phone] [place] [facility] Annual Exam (chief complaint) Encounter for gynecological examination (general) (routine) without abnormal findingsEncounter for screening for other disorderEncounter for screening examination for sexually transmitted diseaseFibroid Soco Waddell [address] [place] [address] [address], [place], [id number], [place]. tel:[phone] PREV VISIT, EST, AGE 18-39 [facility], [address], [address], [place], [id number], [place] tel:[phone] [place] [facility] Annual Exam (chief complaint) Encounter for gynecological examination (general) (routine) without abnormal findingsEncounter for screening for other disorderEncounter for screening for infections with predominantly sexual mode of transmission [facility] Waddell [facility] [address], [place], [id number], [place]. tel:[phone] OFFICE/OUTPATI ENT VISIT, EST [facility], [address], [address], [place], [id number], [place] tel:[phone] [place] [facility] SONO F/U (chief complaint) Uterine leiomyoma, unspecified location Soc[facility] Waddell [facility] [address], [place], [id number], [place]. 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 [address] [facility] [address], [place], [id number], [place]. tel:[phone] Family History Family Member Type Diagnosis Age At Onset Father Problem (finding) hypertension Problem (finding) No family hist ory of Cancer, breast Problem (finding) No family hist ory of Cancer, ovarian Problem (finding) No family hist ory of Cancer, endometrial Mother Problem (finding) hypertension Maternal grandfather Problem (finding) cancer of colon (Cause Of ) Payers Payer name Insurance type Covered republican ID Authoriza tion(s) Wendy O [id number] Social History Type Description Quantity Date Captured Comments Alcohol Use Details Unknown Caffeine Use Details Unknown Tobacco Use Status No Information Smoking Status No Information Sex Female Chief Complaint And Reason For Visit No Information Plan Of Treatment Date Type Action Status Referral Ordered: TRANSVAGINAL US, NON-OB ordered Referral Ordered: Ultrasound Pelvis Complete ordered History Of Present Illness Encounter Date Complaint History Of Prese nt Illness Annual Exam : 1. Abor tion spontaneous: 1. The patient states she uses condoms, male for control. Last LMP was 03/06/2021. Her menses is regular with normal flow with a frequency of monthly. Negative for dysmenorrhea and menorrhagia. Negative for: breast discharge, breast lump(s) and breast pain. Positive for: breast self exam. Pertinent negatives include abnormal vaginal bleeding, anxiety, depression, dyspareunia, urinary incontinence and vaginal discharge.The patient states her exercise level is sedentary. The patient does not use tobacco. She does drink alcohol. Additional information: Patient presents for WWE. Denies new medical problems/medications. Having regular monthly periods. No menorrhagia or breakthrough bleeding. Dating and using condoms. No pain/bleeding with sex. She remains unsure about . Does want children but aware of age.Last pap: 06.16.19 - NIL/HPV neg.s/p COVID vaccine, due for booster. Annual Exam : 1. Abor tion spontaneous: 1. The patient states she uses none for control. Last LMP was 12/06/2019. Her menses is regular with normal flow with a frequency of monthly. Negative for dysmenorrhea and menorrhagia. Negative for: breast discharge, breast lump(s), breast pain and breast self exam. Pertinent negatives include abnormal vaginal bleeding, anxiety, depression, dyspareunia, urinary incontinence, urinary urgency, vaginal discharge and vaginal itching. She does not take multivitamins. The patient states her exercise level is sedentary. She does drink alcohol. Additional information: Patient presents for WWE. Denies new medical problems/medications. Underwent lap. myomectomy with Tasha Meredith ([employer]) 02/2019 - feels much better. Was told would need section. Periods are back to normal. Scheduled for hysteroscopy to assess uterine cavity. Has been sexually active with 1 partners. Remains unsure about fertility plans. Does want children.Last pap: 3.26.19 - NIL/HPV neg. SONO F/U Patient presents to review ultrasound and discuss management of fibroids. fibroids Annual Exam : 1. Abor tion spontaneous: 1. The patient states she uses none for control. Last LMP was 05/25/2018. Her menses is regular with normal flow with a frequency of qmo. Negative for dysmenorrhea and menorrhagia. Negative for: breast discharge, breast lump(s), breast pain and breast self exam.The patient is not post-menopausal. Pertinent negatives include abnormal vaginal bleeding, depression, dyspareunia, sleep disturbances, urinary incontinence, urinary urgency, vaginal discharge and vaginal itching. She does not take multivitamins.The patient states her exercise level is moderate and frequency is 2-3 times/week. The patient does not use tobacco. She does not drink alcohol. 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 Was told she had an enlarged uterus by her prior BOILER OUT. Reports recent evaluation for fibroids at [facility] which confirms fibroids. Notes that has regular periods lasting 3-4 days and while no menorrhagia they are heavier over past couple of years. No clots. Does have feeling of fullness and pressure. Frequent urination. Denies bowel complaints.Not currently sexually active. Wants option of if meets partner in future. Aware of fertility limits and alternative options.Last pap: 2014; denies hx of abnormal pap smears.. Instructions Date Instruction Additional Infor mation No Information Assessments Type Assessment Date No Information
== END 2024-10-13 08:12 | disposition home or self-care (01) ==
LOC: HO.MAMMO 08:11
PROVIDERS: PCP Internal Medicine; Visit Provider Internal Medicine
DX: Z12.31 Encounter for screening mammogram for malignant neoplasm of breast (principal)
CPT/HCPCS: 77063; 77067

== ENCOUNTER → 2024-10-13 08:15 | Outpatient (BNV) | payer OTHER, SELFPAY | PROVIDERS: PCP Internal Medicine; Visit Provider Radiology Body Imaging | DX: Z12.31 Encounter for screening mammogram for malignant neoplasm of breast (principal) | CPT/HCPCS: 77063; 77067 ==

== ENCOUNTER 2024-10-15 08:43 | Outpatient (REF) | payer OTHER, SELFPAY ==
--- NOTE | ~2024-10-15 | XR_ITS ---
EXAMINATION: XR CHEST CLINICAL INFORMATION: R07.89 - Other chest pain COMPARISON: None available. TECHNIQUE: 2 views of the chest were obtained. FINDINGS: The cardiac, hilar, and mediastinal contours are normal. The lungs are clear bilaterally. There is no pneumothorax or pleural effusion. There is no focal osseous or soft tissue abnormality. XR/XR chest 2V IMPRESSION: Normal chest. Electronically signed by: Gabino Burt MD 10/15/2024 09:51 AM EDT
--- NOTE | ~2024-10-15 | XR_ITS ---
EXAMINATION: XR THORACIC SPINE CLINICAL INFORMATION: Thoracic back pain. COMPARISON: None available. TECHNIQUE: 2 views of the thoracic spine were obtained. FINDINGS: There is no fracture or bone destruction seen and the vertebral alignment is normal. There is no disc space narrowing. There is no abnormality of the paraspinal soft tissues. XR/XR thoracic spine 2V IMPRESSION: Unremarkable thoracic spine. Electronically signed by: Benoit Vyas MD 10/15/2024 09:50 AM EDT
== END 2024-10-15 08:44 | disposition home or self-care (01) ==
LOC: HO.HMGCX 08:43
PROVIDERS: PCP Internal Medicine; Visit Provider Internal Medicine
DX: R07.89 Other chest pain (principal); R07.1 Chest pain on breathing; M54.9 Dorsalgia, unspecified; V89.2XXS Person injured in unspecified motor-vehicle accident, traffic, sequela
CPT/HCPCS: 71046; 72070

== ENCOUNTER 2024-10-15 08:43 | Outpatient (AMB) | payer OTHER, SELFPAY ==
--- OUTSIDE RECORDS SUMMARY | 2022-11-03 09:16 | XMS_ITS | Continuity of Care Document ---
Author Organization [facility] Address [address], [address] [place] [address] Phone Care Team Providers Care Focusing Machine Operator Name Role Phone Jennifer Gomez MD Unavailable Unavailable Allergies, Adverse Reactions, Alerts Substance Reaction Status Criticality No Known Allergies Active No Inform ation Procedures Procedure Date URINALYSIS NONAUTO W/O SCOPE PATIENT LIAISON 2020 PREV VISIT, EST, AGE 18-39 URINALYSIS NONAUTO W/O SCOPE PATIENT LIAISON 2019 PREV VISIT, EST, AGE 18-39 Ultrasound Pelvis Complete TRANSVAGINAL US, NON-OB OFFICE/OUTPATIENT VISIT, EST URINALYSIS NONAUTO W/O SCOPE PATIENT LIAISON 2018 PREV VISIT, NEW, AGE 18-39 HPV HIGH-RISK TYPES CYTOPATH C/V AUTO FLUID REDO CHYLMD TRACH DNA AMP PROBE N.GONORRHOEAE DNA AMP PROB Advance Directives Directive Yes / No Effective Date File Name No Information Encounters Encounter Description Practice Location Reason(s) For Visit Diagnoses Date Provider [facility], [address], [address], [place], [id number], [place] tel:[phone] [place] [address] No Information Jason Rodriguez. [address] [place] [address], [address], [place], [id number], [place]. tel:[phone] PREV VISIT, EST, AGE 18-39 [facility], [address], [address], [place], [id number], [place] tel:[phone] [place] [address] Annual Exam (chief complaint) Encounter for gynecological examination (general) (routine) without abnormal findingsEncounter for screening for other disorderEncounter for screening examination for sexually transmitted diseaseFibroid Soco Waddell [address] [place] [address] [address], [place], [id number], [place]. tel:[phone] PREV VISIT, EST, AGE 18-39 [facility], [address], [address], [place], [id number], [place] tel:[phone] [place] [address] Annual Exam (chief complaint) Encounter for gynecological examination (general) (routine) without abnormal findingsEncounter for screening for other disorderEncounter for screening for infections with predominantly sexual mode of transmission Soc[facility] Waddell [facility] [address], [place], [id number], [place]. tel:[phone] OFFICE/OUTPATI ENT VISIT, EST [facility], [address], [address], [place], [id number], [place] tel:[phone] [place] [address] SONO F/U (chief complaint) Uterine leiomyoma, unspecified location Soc[facility]addell [facility] [address], [place], [id number], [place]. 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 [address] [facility] [address], [place], [id number], [place]. tel:[phone] Family History Family Member Type Diagnosis Age At Onset Father Problem (finding) hypertension Problem (finding) No family hist ory of Cancer, breast Problem (finding) No family hist ory of Cancer, ovarian Problem (finding) No family hist ory of Cancer, endometrial Mother Problem (finding) hypertension Maternal grandfather Problem (finding) cancer of colon (Cause Of ) Payers Payer name Insurance type Covered constitution party ID Authoriza tion(s) Wendy O [id number] Social History Type Description Quantity Date Captured [...] problems/medications. Underwent lap. myomectomy with Tasha Meredith ([employer]) 02/2019 - feels much better. 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 Was told she had an enlarged uterus by her prior PATIENT LIAISON. Reports recent evaluation for fibroids at [facility] which confirms fibroids. Notes that has [...]
[2024-10-15 08:47] VITALS: BP 132/80; PULSE 91; O2SAT 98; BMI 26.0
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
== END 2024-10-15 09:14 | disposition home or self-care (01) ==
LOC: HO.HMCC 08:43
PROVIDERS: PCP Internal Medicine; Visit Provider Internal Medicine
DX: R07.89 Other chest pain (principal); R07.1 Chest pain on breathing; M54.9 Dorsalgia, unspecified; Z04.3 Encounter for examination and observation following other accident; V89.2XXS Person injured in unspecified motor-vehicle accident, traffic, sequela; M54.50 Low back pain, unspecified; R52 Pain, unspecified; M94.0 Chondrocostal junction syndrome [Tietze]

== ENCOUNTER → 2024-10-15 09:21 | Outpatient (BNV) | payer OTHER, SELFPAY | PROVIDERS: PCP Internal Medicine; Visit Provider Radiology Diagnostic Radiology | DX: R07.89 Other chest pain (principal); M51.14 Intervertebral disc disorders with radiculopathy, thoracic region | CPT/HCPCS: 71046; 72070 ==

== ENCOUNTER 2024-11-12 07:00 | Outpatient (RCR) | payer OTHER, SELFPAY ==
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
--- NOTE | 2024-12-13 15:22 | MHC.PT.DC ---
[facility] [place] [facility] [place] [facility] [place] [employer] Office [address] Marlin Lazo [address] [phone] F: [phone] F: [phone] F: [phone] F: [phone] Physical Therapy Discharge Report Diagnosis: This is a 44 yo female presenting to skilled PT with a script for low/mid back pain. Date of Surgery: Date of Evaluation: 11/03/24 Date of Discharge: 12/13/24 Treatments to Date: 3 Cancellations to Date: 0 No Shows to Date: 0 Discharge Status: Patient Elected to Stop Discharge Summary: Patient came to 3 sessions of PT, she left for a trip but did not follow up with PT after she returned. Chart was closed after being away from the clinic for over 30 days. DC to HEP and self management. Electronically signed by: Julee Elias PT Please sign and return to therapist. Thank you for your referral.
== END 2024-12-13 15:22 | disposition home or self-care (01) ==
LOC: HO.PTCHIC 07:00
PROVIDERS: PCP Internal Medicine; Visit Provider Internal Medicine
DX: M54.50 Low back pain, unspecified; R07.9 Chest pain, unspecified
CPT/HCPCS: 97014; 97110; 97162